=== PATIENT | male | born 1980 | race Caucasian/White ===

== ENCOUNTER → 2024-05-25 | Outpatient (CLI) | payer BC ==
--- NOTE | 2024-05-25 11:17 | XR ---
Lumbar spine HISTORY: Pain and stiffness and lower extremity radiculopathy post injury 6 months prior. COMPARISON: None. TECHNIQUE: 5 views of lumbar spine were obtained. FINDINGS: The lumbar vertebral segments are normal in height and alignment and there is no fracture or subluxat ion. There is mild to moderate disc space narrowing with vacuum phenomenon at the L5-S1 level. There is mi ld disc space narrowing at the L4-5 level. Sacrum and SI joints are normal. There is no spondylolysis or spondylolisthesis. IMPRESSION: 1. No evidence of acute trauma. 2. Mild degenerative disease at the L4-5 level and moderate degenerative disease at the L5-S1 level.
== END | disposition home or self-care (01) ==
LOC: RADXRYALE 10:48
PROVIDERS: ATTEND Physician Assistant
DX: M51.36 Other intervertebral disc degeneration, lumbar region (principal); M47.817 Spondylosis without myelopathy or radiculopathy, lumbosacral region; M54.42 Lumbago with sciatica, left side; M51.37 Other intervertebral disc degeneration, lumbosacral region
CPT/HCPCS: 72110